=== PATIENT | female | born 1975 | race Caucasian/White ===

== ENCOUNTER 2019-01-20 14:46 | Emergency (ER) | payer OTHER ==
[2019-01-20 15:24] VITALS: BP 157/83
--- NOTE | 2019-01-20 15:58 | UC ---
Complaint Female HPI - HPI Summary HPI Summary: PATIENT FELT A SCRATCH FROM HER PARTNERS FINGERNAIL WHILE THEY WERE ENGAGED IN SEXUAL INTERCOURSE 3 DAYS AGO. AFTER IT HAPPENED THEY PROCEEDED TO HAVE VAGINAL INTERCOURSE AND THE PAIN WORSENED. SINCE THEN SHE HAS HAD A RAW SENSATION TO THE AREA AND EXQUISITE PAIN WITH ANY FRICTION OR MOVEMENT. NO VAGINAL DISCHARGE. UP-TO-DATE TETANUS. - History Of Current Complaint Chief Complaint: [facility] Stated Complaint: PERSONAL ISSUE Time Seen by Provider: 01/20/19 15:26 Hx Obtained From: Patient Hx Last Menstrual Period: 3 weeks Onset/Duration: Sudden Onset, Lasting Days, Still Present Timing: Constant Severity Initially: Moderate Severity Currently: Moderate Pain Intensity: 7 Pain Scale Used: 0-10 Numeric Character: Sharp, Burning Aggravating Factor(s): Movement, Other - TOUCH Alleviating Factor(s): Nothing Associated Signs And Symptoms: Positive: Negative - Allergies/Home Medications Allergies/Adverse Reactions: Allergies Allergy/AdvReac Type Severity Reaction Status Date / Time azithromycin Allergy Severe tongue raw Verified 01/20/19 15:30 erythromycin base Allergy Severe Vomiting Verified 01/20/19 15:30 Sulfa (Sulfonamide Allergy Severe Hives Verified 01/20/19 15:30 Antibiotics) Home Medications: Home Medications ALPRAZolam TAB* [Xanax TAB*] 1 tab PO TID PRN 01/20/19 [History Confirmed ] Escitalopram * [Lexapro *] 30 mg PO DAILY 01/20/19 [History Confirmed 01/20/19] traZODone TAB* [Desyrel TAB*] 1 powder PO BEDTIME 01/20/19 [History Confirmed ] PMH/Surg Hx/FS Hx/Imm Hx Psychological History: Anxiety, Depression - Surgical History Surgical History: Yes Surgery Procedure, Year, and Place: WISDOM TEETH REMOVAL 10 YRS AGO - Family History Known Family History: Positive: Non-Contributory - Social History Alcohol Use: None Substance Use Type: None Smoking Status (MU): Former Smoker Review of Systems All Other Systems Reviewed And Are Negative: Yes Constitutional: Positive: Negative Respiratory: Positive: Negative Cardiovascular: Positive: Negative Gastrointestinal: Positive: Negative Genitourinary: Positive: Vaginal/Penile Pain. Negative: Dysuria, Frequency, Urgency Physical Exam Triage Information Reviewed: Yes Appearance: Well-Appearing, No Pain Distress, Well-Nourished Vital Signs: Initial Vital Signs Temp 98.6 F 01/20/19 15:16 Pulse 72 01/20/19 15:16 Resp 17 01/20/19 15:16 BP 157/83 01/20/19 15:16 Pulse Ox 98 01/20/19 15:16 Vital Signs Reviewed: Yes Eyes: Positive: Conjunctiva Clear ENT: Positive: Hearing grossly normal Neck: Positive: Supple Respiratory: Positive: No respiratory distress, No accessory muscle use Cardiovascular: Positive: Pulses Normal Abdomen Description: Positive: Soft Pelvic Exam: Positive: External Exam Normal, Other - ABRASION VAGINAL INTROITUS. TENDER, RAW Musculoskeletal: Positive: No Edema Neurological: Positive: Alert Psychological: Positive: Age Appropriate Behavior Skin: Negative: Rashes Complaint Female Dx - Course Course Of Treatment: PATIENT HAS AN ABRASION AT THE INTROITUS OF HER VAGINA. IT DOES NOT APPEAR TO BE INFECTED AT PRESENT. HAVE PRESCRIBED TOPICAL LIDOCAINE TO HELP WITH THE DISCOMFORT. ADVISED TO KEEP THE AREA COOL CLEAN AND DRY ABLE. AVOID ANY FRICTION TO THE AREA. FOLLOW-UP WITH PCP OR GYNECOLOGY IF SHE IS NOT IMPROVING OVER THE NEXT WEEK OR SO. - Differential Dx/Diagnosis Provider Diagnosis: Abrasion of vagina Discharge ED - Sign-Out/Discharge Documenting (check all that apply): Patient Departure All imaging exams completed and their final reports reviewed: No Studies - Discharge Plan Condition: Stable Disposition: HOME Prescriptions: Lidocaine 2% JELLY* 1 applic TOPICAL BID PRN #1 tube PRN Reason: Pain - Moderate Patient Education Materials: Abrasion (ED) Referrals: [facility] [Provider Group] - If Needed Tammy Seth [Primary Care Provider] - If Needed Additional Instructions: YOU HAVE AN ABRASION AT THE INTROITUS OF YOUR VAGINA. IT DOES NOT APPEAR INFECTED AT PRESENT. USE THE TOPICAL LIDOCAINE JELLY TWICE DAILY IF NEEDED FOR DISCOMFORT. YOU CAN USE BACITRACIN OINTMENT OR VASELINE OINTMENT THROUGHOUT THE DAY NEEDED TO PROVIDE PROTECTION TO THE ABRADED AREA. KEEP THE AREA COOL AND CLEAN ABLE. AVOID ANY FRICTION TO THE AREA. USE A PERSONAL HYGIENE BOTTLE TO HELP CLEANSE THE AREA AFTER YOU URINATE. PAT DRY WITH A CLEAN TOWEL. WEAR COTTON, LOOSE FITTING CLOTHING. FOLLOW-UP WITH YOUR PCP OR [facility] IF YOUR SYMPTOMS ARE NOT IMPROVING OVER THE NEXT WEEK OR SO. - Billing Disposition and Condition Condition: STABLE Disposition: Home
== END 2019-01-20 15:55 | disposition home or self-care (01) ==
LOC: UCEAST 14:46
DX: S30.814A Abrasion of vagina and vulva, initial encounter (principal); F32.9 Major depressive disorder, single episode, unspecified; F41.9 Anxiety disorder, unspecified; Z88.1 Allergy status to other antibiotic agents; Z88.2 Allergy status to sulfonamides; Z79.899 Other long term (current) drug therapy; W50.4XXA Accidental scratch by another person, initial encounter; Y93.89 Activity, other specified; Y92.9 Unspecified place or not applicable
CPT/HCPCS: 99212; G0463